=== PATIENT | female | born 1995 | race African-American/Black ===

== ENCOUNTER 2024-05-01 09:41 | Emergency (ER) | payer MEDICAID, SELFPAY ==
[2024-05-01 09:57] VITALS: BP 133/63; PULSE 112; RESP 16; TEMP 36.9; O2SAT 99
[2024-05-01 10:12] LABS: EDSTREPNEGPOS1 Negative (Negative)
[2024-05-01 10:25] LABS: EDCOVIDSCREEN Negative (Negative); EDINFLUASCREEN Negative (Negative); EDINFLUBSCREEN Negative (Negative)
--- NOTE | 2024-05-01 10:34 | ED.URI ---
HPI - URI/Sore Throat General Chief Complaint: Upper Respiratory Infection Stated Complaint: Sore Throat Time Seen by Provider: 05/01/24 10:00 Source: patient Mode of arrival: ambulatory Limitations: no limitations History of Present Illness HPI Narrative: 29-year-old female presents with complaint of sore throat, congestion, fatigue and body aches starting yesterday. Patient wants to make sure she does not have strep throat. No known exposure. Denies nausea vomiting diarrhea. All systems reviewed and negative except as noted above. Related Data Home Medications ?Medication ?Instructions ?Recorded ?Confirmed ?Last Taken ?Type No Home Medications 05/01/24 05/01/24 Unknown History Allergies Allergy/AdvReac Type Severity Reaction Status Date / Time No Known Allergies Allergy Verified 05/01/24 10:00 Review of Systems Review of Systems: CONSTITUTIONAL: Denies fever, chills, or sweats. Reports fatigue. EYES: Denies visual changes, redness, or discharge. ENT: reports rhinorrhea, congestion, sore throat. Denies otalgia. CARDIOVASCULAR: Denies chest pain, palpitations, or edema. RESPIRATORY: Denies cough or dyspnea. GASTROINTESTINAL: Denies abdominal pain, nausea, vomiting, or diarrhea. GENITOURINARY: Denies dysuria or hematuria. SKIN: Denies rash or itching. MUSCULOSKELETAL: Denies back pain, joint pain . Reports myalgia. NEUROLOGIC: Denies headache, numbness, or weakness. PSYCHIATRIC: Denies anxiety or depression. All other systems reviewed are negative, except as documented in HPI. PMFSH Comments At time of signature, agree with nursing past medical, surgical, social and family history. There is no relevant family history pertinent to the presenting complaint. Exam Narrative: GENERAL: This is a well-nourished, well-developed patient, in no apparent distress. HEAD: normocephalic, atraumatic. EYES: PERRL. Sclera clear/white. Vision is grossly intact. EARS: External ears normal, auditory canals clear and without drainage, TMs normal without perforation. Hearing grossly intact. NOSE: External nose normal with no obvious nasal discharge, nares without redness, no rhinorrhea. THROAT: Mucous membranes moist, posterior pharynx clear. NECK: Neck supple, non-tender without lymphadenopathy, masses or thyromegaly. CARDIOVASCULAR: Regular rate and rhythm without murmurs, gallops, or rubs. RESPIRATORY: Clear to auscultation. Breath sounds equal bilaterally. No wheezes, rales, or rhonchi. SKIN: warm, Dry, intact with no suspicious lesions or rash, good texture and turgor. NEURO: awake, alert, and oriented to person, place and time. There were no obvious focal neurologic abnormalities. EXTREMITIES: No joint tenderness, effusion, or edema noted. Course Course Level of Care: Express Care Visit Vital Signs Vital signs: Vital Signs Temperature 36.9 C 05/01/24 09:57 Pulse Rate 112 H 05/01/24 09:57 Respiratory Rate 16 05/01/24 09:57 Blood Pressure 133/63 05/01/24 09:57 Pulse Oximetry 99 05/01/24 09:57 Oxygen Delivery Room Air 05/01/24 09:57 Temperature 36.9 C 05/01/24 09:57 Pulse Rate 112 H 05/01/24 09:57 Respiratory Rate 16 05/01/24 09:57 Blood Pressure 133/63 05/01/24 09:57 Pulse Oximetry 99 05/01/24 09:57 Oxygen Delivery Room Air 05/01/24 09:57 reviewed MDM - URI/Sore Throat MDM Narrative Medical decision making narrative: negative COVID, influenza, strep. Strep culture ordered. Patient is well-appearing. Exam normal. Recommend [id number] medications to treat symptoms. Patient is aware of diagnosis, understands and agrees to treatment plan. Anticipatory guidance given. Patient agrees to follow-up as directed and is aware of reasons to seek care at the emergency department. Portions of this record may have been created with voice recognition software Lab Data Labs: Lab Results 05/01/24 05/01/24 Range/Units 10:11 10:23 POC Influenza A Ag Negative (Negative) POC Influenza B Ag Negative (Negative) POC SARS CoV-2 Ag Negative (Negative) POC Grp A Strep Screen Negative (Negative) Discharge Plan Discharge Clinical Impression: Acute viral pharyngitis Patient Disposition: Home, Self-Care Condition: Stable Instructions: Pharyngitis (ED) Additional Instructions: your strep, COVID and influenza test were negative today. A strep culture was ordered and results will take 24-48 hours. If your strep culture is positive, we will call and prescribed an antibiotic. Take [id number] medications to treat her symptoms such as DayQuil NyQuil cold and flu. Take ibuprofen every 6-8 hours as needed for pain and fever. Drink at least 64 oz of water a day. Follow-up with your primary care physician if symptoms are not improving. Patient Language: Luxembourgish Prescriptions: No Action No Home Medications Follow-up/Referrals: PHYSICIAN,[employer] [Primary Care Provider] - Time of Disposition: 10:30
== END 2024-05-01 10:33 | disposition home or self-care (01) ==
PROVIDERS: Emergency Provider Nurse Practitioner Family
DX: J02.8 Acute pharyngitis due to other specified organisms (principal); Z20.822 Contact with and (suspected) exposure to COVID-19
CPT/HCPCS: 87081; 87426; 87804; 87880; 99203; G0463